=== PATIENT | female | born 1995 | race Caucasian/White ===

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

== ENCOUNTER → 2017-01-15 | Outpatient (CLI) | payer BC ==
[2017-01-20 00:40] LABS: CHLAMYDIA TRACH RNA*** NOT DETECTED (NOT DETECTED); GC (NEIS GONORRHOEAE)RNA** NOT DETECTED (NOT DETECTED); TRICHOMONAS VAGINALIS RNA** NOT DETECTED (NOT DETECTED)
== END | disposition home or self-care (01) ==
LOC: C.LABSPEC 17:25
PROVIDERS: ATTEND Obstetrics & Gynecology
DX: Z01.419 Encounter for gynecological examination (general) (routine) without abnormal findings (principal)

== ENCOUNTER → 2017-02-26 | Outpatient (CLI) | payer BC ==
--- NOTE | 2017-02-26 10:05 | DIAGNOSTIC IMAGING REPORT ---
LEFT SHOULDER MIN 2 VIEWS CLINICAL HISTORY: LEFT SHOULDER PAIN pain COMPARISON: None. DISCUSSION: The bones and joint spaces appear intact. There is no evidence of fracture, dislocation or bony disease. There is no evidence for soft tissue swelling. IMPRESSION: Negative study. The above report was generated using voice recognition software. It may contain grammatical, syntax or spelling errors. Electronically signed by: Salo Wilson M.D. 02/26/2017 10:04 AM Dictated Date/Time: 02/26/2017 10:03 AM
== END | disposition home or self-care (01) ==
LOC: C.RDSM 11:57
PROVIDERS: ATTEND Family Medicine
DX: M25.512 Pain in left shoulder (principal)

== ENCOUNTER → 2017-05-01 | Outpatient (CLI) | payer BC ==
--- NOTE | 2017-05-01 14:55 | MAMMOGRAPHY REPORT ---
ULTRASOUND OF BOTH BREASTS: 05/01/2017 CLINICAL HISTORY: The patient reports bilateral painful lumps for approximately 3 weeks. COMPARISON: Comparison is made to exam dated: 10/06/2013 ultrasound - [facility]. TECHNIQUE: Real-time targeted ultrasound of both breasts was performed. FINDINGS: Real-time, high resolution targeted ultrasound was performed of the areas of the painful p alpable lumps pointed out by the patient, in the left breast at 1:00 approximately 5-6 cm from the ni pple, as well as the right breast involving a large portion of the 5:30 to 6:00 breast. Sonographica lly normal dense fibroglandular tissue is seen in these regions, without evidence of a mass or other suspicious sonographic abnormality. IMPRESSION: ACR BI-RADS CATEGORY 2: BENIGN No suspicious sonographic abnormalities at the site of painful bilateral breast lumps. There is no s onographic evidence of malignancy. Recommend clinical follow-up. The patient was verbally notified of the results. Suha Garcia M.D. ah/:05/01/2017 11:55:33 Attending Technologist: Joelle Moffett RT(R)(M), [facility] Company Accountant: Suha Garcia MD, [facility] letter sent: Normal 1/2 BI-RADS Code: ACR BI-RADS Category 2: Benign
== END | disposition home or self-care (01) ==
LOC: C.MAMM 10:18
PROVIDERS: ATTEND Obstetrics & Gynecology
DX: N63 Unspecified lump in breast (principal)

== ENCOUNTER 2022-01-02 00:25 | Inpatient (IN) ==
[2022-01-02] MEDS ORDERED: PENICILLIN G POTASSIUM 6 MU in DEXTROSE 5% 250 ML IV STA (00:36)
[2022-01-02] MEDS ORDERED: LACTATED RINGER'S 1,000 ML IV PRN (00:36)
[2022-01-02] MEDS ORDERED: OXYTOCIN 30 UNITS/500 ML BAG IV PRN ×2 (00:36→07:34)
--- NOTE | 2022-01-02 00:42 | History & Physical Report ---
Date of Service January 02, 2022 Assessment & Plan (1) Supervision of normal first : Plan: 26yo at 38.1 weeks GA Presents with SROM and Labor. 1. Fetus: Cat 1 2. Labor: SROM with active labor 3. GBS positive - PCN 4. Vitals: WNL (2) SROM (spontaneous rupture of membranes): (3) Normal labor: (4) Group beta Strep positive: History of Present Illness Primary Care Provider: Le Cline MD 26yo at 38.1 weeks GA Presents with SROM and Labor. complicated by Chlamydia with FARIBA at 8 and 36 weeks and GBS positive. OB Labs: Blood Type A Positive 05/29/21 Antibody Screen NEGATIVE 05/29/21 Hemoglobin 11.2 g/dL (12.0-16.0) L 10/23/21 Hematocrit 33.3 % (37-47) L 10/23/21 Mean Corpuscular Volume 90.8 fL (80-100) 05/29/21 Platelet Count 357 K/uL (130-400) 05/29/21 Rubella IgG Antibody Immune (Immune) 05/29/21 Rapid Plasma Reagin Nonreactive (Nonreactive) 05/29/21 Hepatitis B Surface Antigen Neg (Neg) 05/29/21 HIV (1&2) Ab and P24 Ag, 4th Gener Neg (Neg) 05/29/21 Glucose 1 Hour 50 gm Load 95 mg/dl (70-130) 10/23/21 OB Optional Labs: Chlamydia trachomatis RNA NOT DETECTED (NOT DETECTED) 12/18/21 Neisseria gonorrhoeae RNA NOT DETECTED (NOT DETECTED) 12/18/21 Labs Reviewed: Normal cfDNA Negative SMA/CF GBS Positive--mln Allergies Allergy/AdvReac Type Severity Reaction Status Date / Time No Known Allergies Allergy Unknown Verified 12/25/21 15:35 Home Medications Medication Instructions Recorded Confirmed Type prenat.vits,gerda,szp-yluu-nfjfj 1 tab PO DAILY 05/22/21 01/02/22 History Patient History Medical History (Updated 01/02/22 @ 07:39 by Abe Mcdonald MD) History of chlamydia Vaginitis Varicella vaccination Surgical History S/P adenoidectomy Family History (Updated 05/22/21 @ 10:05 by Chantell Farrell) Grandmother (Maternal) Hypertension Breast cancer Grandfather (Paternal) Hypertension Father Dyslipidemia Uncle Myocardial infarction Denies family history of Ovarian cancer Colorectal cancer Social History (Updated 05/22/21 @ 10:05 by Chantell Farrell) Smoking Status: Former smoker Hx Alcohol Use: Yes Hx Substance Use: No Preferred Language: Slovenian [employer] School Required: No Beliefs That Will Affect Care: None marital status: Single marital status details: virgilio Armendariz (26) [phone] Current Living Situation: Significant Other Current Living Situation Comment: Cosme Armendariz current occupational status: student current occupation: student [employer] Other Information That Helps Us Care for You: No Feels Safe at Home: Yes Safety Concerns: Feels Safe At This Time Assistive Devices: Glasses Physical Exam Genitourinary: Manual OB Exam: + cervical dilation 5 cm, + cervical effacement and + amniotic fluid clear OB Exam Monitor Tracing: + external FHT monitor used, + external uterine monitor used, + category I and + normal FHT variability; no early decelerations present, no late decelerations present and no variable decelerations Exam per nurse Results & Data ([facility]) Vital Signs (Past 12 Hours) Vital Signs Pulse BP 01/02/22 00:37 72 153/78 H Coding Level of Care Code None Diagnoses Supervision of normal first Z34.00 SROM (spontaneous rupture of membranes) Normal labor O80; Z37.9 Group beta Strep positive B95.1
[2022-01-02] MEDS ORDERED: SODIUM CHLORIDE 0.9% INJ 10 ML VIAL ONE (00:55)
[2022-01-02] MEDS ORDERED: ePHEDrine sulfate 50 MG/ML AMP ONE (00:55)
[2022-01-02] MEDS ORDERED: fentaNYL citrate 100 MCG/2 ML VIAL ONE (00:55)
[2022-01-02] MEDS ORDERED: BUPIVACAINE 0.25% 30 ML VIAL ONE (00:56)
[2022-01-02] MEDS ORDERED: fentaNYL 2MCG/ML ROPIVACAINE 1.25MG/ML 100 ML BAG EPI ONE (00:56)
[2022-01-02 01:10] LABS: Hematocrit (blood only) 36.8 % (37-47); Hemoglobin 12.6 g/dL (12.0-16.0); Mean Corpuscular Hemoglobin 31.2 pg (25-34); Mean Corpuscular Hgb Conc 34.2 g/dL (32-36); Mean Corpuscular Volume 91.1 fL (80-100); Platelet Count 322 K/uL (130-400); RDW Coefficient of Variation 12.9 % (11.5-14.5); RDW Standard Deviation 42.9 fL (36.4-46.3); Red Blood Count 4.04 M/uL (4.2-5.4); White Blood Count 16.63 K/uL (4.8-10.8)
--- NOTE | 2022-01-02 01:41 | Anesthesiology Consultation ---
Date of Service January 02, 2022 Assessment & Plan Chart Review Chart Review: Acceptable Risk for Labor Epidural Consults Requested none ASA ASA2 Proposed Anesthesia Anesthesia Type: Labor Epidural Risk / Benefits Reviewed With: PT / POA / Parent / Guardian, Accepts Plan and Informed Consent Obtained History Height/Weight Height: 5 ft 4 in Weight: 82.554 kg Allergies Allergy/AdvReac Type Severity Reaction Status Date / Time No Known Allergies Allergy Unknown Verified 12/25/21 15:35 Medications Home Medications Medication Instructions Recorded Confirmed Last Taken prenat.vits,gerda,qlc-lbte-rznwb 1 tab PO DAILY 05/22/21 01/02/22 01/01/22 Active Medications Generic Name Dose Route Start Last Admin Trade Name Freq PRN Reason Stop Dose Admin Lactated Ringer's 1,000 mls @ 125 mls/hr 01/02/22 00:36 01/02/22 00:51 Lr IV 01/04/22 00:35 999 mls/hr .Q8H PRN Administration L&D Protocol Protocol NPO Date Last Intake of Fluids: 01/01/22 Time Last Intake of Fluids: 23:00 Date Last Intake of Solids: 01/01/22 Time Last Intake of Solids: 23:00 Past Medical History Medical History History of chlamydia Vaginitis Varicella vaccination Exercise / Class Metabolic Activity II 4-5 Yardwork/Stairs/Walk up hill Past Family History Family History (Updated 05/22/21 @ 10:05 by Chantell Farrell) Grandmother (Maternal) Hypertension Breast cancer Grandfather (Paternal) Hypertension Father Dyslipidemia Uncle Myocardial infarction Denies family history of Ovarian cancer Colorectal cancer Past Surgical History Surgical History S/P adenoidectomy Past Anesthesia History No Hx of Anesthesia Complications and No Family Hx of Anesthesia Complications History of PONV No Hx of PONV and No Hx of Motion Sickness Social History Smoking Status: Former smoker Hx Alcohol Use: Yes Hx Substance Use: No Physical Exam Vital Signs Last Vital Signs Temp 36.4 C L 01/02/22 00:37 Pulse 68 01/02/22 01:35 Resp 18 01/02/22 00:37 BP 153/78 H 01/02/22 00:37 Pulse Ox 100 01/02/22 01:35 ENMT Mouth: no TMJ abnormality Thyromental Distance: > or= 3.5 Finger Breadths Mallampati Class: II Neck normal visual inspection and trachea midline; neck extension not limited Respiratory normal respiratory effort Auscultation: lungs clear to auscultation bilaterally Cardiovascular Rate/Rhythm: regular rate and regular rhythm Heart Sounds: no murmur Musculoskeletal Spine: normal cervical ROM Extremities: full ROM of extremities Neurologic moves all extremities Psychiatric Orientation: alert and oriented x 3 Testing Laboratory Results 01/02/22 00:45
[2022-01-02] MEDS ORDERED: NALOXONE HCL 0.4 MG/1 ML VIAL/CARP IV PRN (01:58)
[2022-01-02] MEDS ORDERED: fentaNYL 2MCG/ML ROPIVACAINE 1.25MG/ML 100 ML BAG EPI PRN (01:58)
[2022-01-02] MEDS ORDERED: ePHEDrine sulfate 50 MG/ML AMP IV PRN (01:58)
[2022-01-02] MEDS ORDERED: diphenhydrAMINE 50 MG/ML VIAL IV PRN (01:58)
[2022-01-02] MEDS ORDERED: NALBUPHINE HCL INJ 10 MG/ML AMP IV PRN (01:58)
[2022-01-02] MEDS ORDERED: ONDANSETRON INJ 2 MG/ML 2 ML VIAL IV PRN (01:58)
[2022-01-02] MEDS ORDERED: NALOXONE HCL 1 MG in SODIUM CHLORIDE 0.9% 1000ML 1,000 ML IV PRN (01:58)
[2022-01-02] MEDS ORDERED: PENICILLIN G POTASSIUM 3 MU in DEXTROSE 5% 100 ML IV PRN (03:36)
[2022-01-02] MEDS ORDERED: DIPHTHERIA/TETANUS/PERTUSSIS 0.5 ML SYR/VIAL IM ONE (07:34)
[2022-01-02] MEDS ORDERED: bisacodyL 10 MG SUPP PR PRN (07:34)
[2022-01-02] MEDS ORDERED: IBUPROFEN 600 MG TAB PO PRN (07:34)
[2022-01-02] MEDS ORDERED: HYDROCORTISONE ACETATE 25 MG SUPP PR PRN (07:34)
[2022-01-02] MEDS ORDERED: ACETAMINOPHEN 325 MG TAB PO PRN (07:34)
[2022-01-02] MEDS ORDERED: BENZOCAINE 20% AER SPR 82.5 GM CAN EXT PRN (07:34)
--- NOTE | 2022-01-02 07:34 | Anesthesia Procedure Note ---
Date of Service January 02, 2022 Anesthesia Post Epidural Note Vital Signs Vital Signs: Temp Pulse Resp BP Pulse Ox 36.6 C 72 18 125/63 97 01/02/22 04:10 01/02/22 07:16 01/02/22 05:40 01/02/22 07:16 01/02/22 04:15 Notes Mental Status: alert / awake / arousable Nausea / Vomiting: adequately controlled Pain: adequately controlled Airway Patency, RR, SpO2: stable & adequate BP & HR: stable & adequate Hydration State: stable & adequate Neuraxial Anesthesia: was administered and sensory block is resolving Anesthetic Complications: no major complications apparent and Pt Satisfied with anesthetic care Epidural: Removed without complications and With tip intact
[2022-01-02] MEDS: FERROUS SULFATE 325 MG TAB PO SCH (08:23)
[2022-01-02] MEDS: DOCUSATE SODIUM 100 MG CAP PO SCH ×2 (08:23→20:37)
[2022-01-02] MEDS: PRENATAL VITAMIN 1 TAB PO SCH (08:23)
--- NOTE | 2022-01-02 09:50 | Delivery Summary ---
DATE OF SERVICE: 01/02/2022 PROCEDURE: Normal spontaneous vaginal delivery with bilateral labial laceration repair. SURGEON: Abe Mcdonald MD. PREOPERATIVE DIAGNOSES: 1. Single intrauterine at 38 weeks 1 day gestational age. 2. Spontaneous rupture of membranes with active labor. 3. Group B streptococcus positive. 4. complicated by chlamydia infection with test of cure. POSTOPERATIVE DIAGNOSES: 1. Single intrauterine at 38 weeks 1 day gestational age. 2. Spontaneous rupture of membranes with active labor. 3. Group B streptococcus positive. 4. complicated by chlamydia infection with test of cure. 5. Status post delivery. ESTIMATED BLOOD LOSS: 300 mL. DRAINS: Straight cath at the completion of the case. URINE OUTPUT: Approximately 400 mL via straight cath. COMPLICATIONS: None. FINDINGS: Viable female with weight and Apgars pending. INDICATIONS: Diann is a 26-year-old , admitted at 38 weeks 1 day gestational age with spontan eous rupture of membranes in active labor. The patient progressed spontaneously without augmentation , received an epidural for anesthesia and progressed to complete-complete, +2 station, at which time she pushed for 10 minutes to achieve delivery. DESCRIPTION OF PROCEDURE: The patient progressed to 10 cm dilated, 100% effaced, positive 2 station, pushed over intact perineum with epidural anesthesia, delivered a viable female with weight a nd Apgars as noted above. Head of the delivered in AYALA position, restituted to right transve rse. No nuchal cord was noted. Body and shoulders quickly followed. was noted to be vigoro us soon after delivery and a 1 minute delayed cord clamping was initiated. Cord was then double clam ped and cut. remained on maternal abdomen. Cord blood was obtained. Attention was then tur jesús to delivery of the placenta, which was delivered intact, 3-vessel cord, gentle cord traction. On inspection of the perineum, vagina, cervix, there was noted to be some bilateral labial lacerations, which were repaired with 3-0 Vicryl in interrupted stitch. Needle, sponge, and instrument counts we re correct at the completion of the case. Both mother and were stable in the immediate post- delivery period. Job ID: [id number]
--- NOTE | 2022-01-03 06:09 | Obstetrical Progress Note ---
Date of Service <Francis Anderson MD - Last Filed: 01/03/22 07:06> January 03, 2022 Assessment & Plan <Francis Anderson MD - Last Filed: 01/03/22 07:06> (1) Vaginal delivery: 26 yo now PPD1 from at 38wk1d -Discharge home today, instructions reviewed with patient -Vitals reviewed- HDS, afebrile -GBS+, PCN given intrapartum -Hgb 11.5, asymptomatic <Farheen Barahona MD, FACOG - Last Filed: 01/03/22 07:08> (1) Vaginal delivery: Subjective <Francis Anderson MD - Last Filed: 01/03/22 07:06> Ambulation: ambulating normally Voiding: no voiding problems Passing Gas:: No (has had BM) Diet Tolerance:: regular diet Lochia:: Small Feeding Type:: breast feeding Current Pain Level(1-10): 0 Pt doing well overall, no acute complaints or distress. Pain well controlled with medication. Would like to go home this afternoon. Review of Systems Denies fever/chills. Denies dyspnea, cough. Denies chest pain. Denies breast pain or discharge. Denies dysuria. Denies headache. Denies back pain. Physical Exam <Francis Anderson MD - Last Filed: 01/03/22 07:06> General: Alert, oriented, no acute distress Cardiac: Regular rate and rhythm, normal S1, S2. No murmurs appreciated. Respiratory: Clear to auscultation b/l with good air flow entry, symmetric chest rise and fall. No wheezes or crackles. No increased work of breathing or accessory muscle use Abdomen: Soft, nontender, nondistended. Fundus firm and palpable at 2 cm below umbilicus. No guarding or rebound. Skin: No rashes or lesions Extremities: Warm, dry, well-perfused with capillary refill <2s b/l. No lower extremity edema, erythema, swelling or calf tenderness b/l. Results & Data ([facility]) <Francis Anderson MD - Last Filed: 01/03/22 07:06> Vital Signs (Past 12 Hours) Vital Signs Temp Pulse Resp BP Pulse Ox 01/03/22 03:30 36.6 C 64 18 113/76 99 01/02/22 23:30 36.6 C 64 18 98/60 L 99 01/02/22 20:30 36.5 C 84 18 114/73 97 <Farheen Barahona MD, FACOG - Last Filed: 01/03/22 07:08> Co-Signing Physician Notes Resident Physician Supervision Note: I interviewed and examined the patient. Discussed with Dr. Anderson and agree with findings and plan as documented in the note. Any exceptions or clarifications are listed here: Doing well. Would like d/c today. Instructions given. Documented By: Farheen Barahona MD, FACOG Resident Activity Tracking <Francis Anderson MD - Last Filed: 01/03/22 07:06> Resident Involvement: Resident Care Provided Care Provided: OB Delivery
[2022-01-03 06:23] LABS: Hematocrit (blood only) 35.4 % (37-47); Hemoglobin 11.5 g/dL (12.0-16.0)
[2022-01-03] MEDS: PRENATAL VITAMIN 1 TAB PO SCH (08:41)
[2022-01-03] MEDS: FERROUS SULFATE 325 MG TAB PO SCH (08:41)
[2022-01-03] MEDS: DOCUSATE SODIUM 100 MG CAP PO SCH ×2 (08:41→20:28)
[2022-01-03] MEDS ORDERED: bisacodyL 5 MG TABEC PO SCH (20:00)
--- NOTE | 2022-01-04 06:55 | Obstetrical Progress Note ---
Date of Service January 04, 2022 Assessment & Plan (1) Encounter for care and examination after delivery: satisfactory exam continue current care plan discharge to home today Subjective Ambulation: ambulating normally Voiding: no voiding problems Passing Gas:: Yes Diet Tolerance:: regular diet Lochia:: Small Feeding Type:: breast feeding Review of Systems All systems reviewed & are unremarkable except as noted in HPI & below Physical Exam Constitutional WD/WN, vitals as above Psychiatric A+Ox3, euthymic affect Genitourinary OB Exam Abdomen: + fundal height Fundus: + firm and + relation to umbilicus (2 below) Results & Data ([facility]) Vital Signs (Past 12 Hours) Vital Signs Temp Pulse Resp BP Pulse Ox 01/03/22 23:03 98.4 F 65 16 109/72 99 01/03/22 20:30 98.8 F 83 18 132/80
[2022-01-04] MEDS: PRENATAL VITAMIN 1 TAB PO SCH (08:06)
[2022-01-04] MEDS: FERROUS SULFATE 325 MG TAB PO SCH (08:06)
[2022-01-04] MEDS: DOCUSATE SODIUM 100 MG CAP PO SCH (08:06)
== END 2022-01-04 11:36 | disposition home or self-care (01) | DRG 807 ==
LOC: OPB 00:25 → 4S1 00:27 → 4E2 13:40

== ENCOUNTER 2024-03-21 16:35 | Inpatient (IN) ==
[2024-03-21] MEDS ORDERED: OXYTOCIN 30 UNITS/NSS 30 UNITS/500 ML BAG IV PRN (19:29)
[2024-03-21] MEDS ORDERED: LIDOCAINE 1% LOCAL 20 ML VIAL INFIL PRN (19:29)
--- NOTE | 2024-03-21 19:32 | History & Physical Report ---
Date of Service March 21, 2024 Assessment & Plan (1) Encounter for supervision of normal in multigravida: Plan: 28 yo at 40 wga presented for prolonged monitoring, now rec for IOL VSS Fetus currently cat 1 Labor - discussed cytotec vs dang/pit, rec dang as cannot turn off the cytotec if nrfht develops. 35c dang placed, pt tolerated well. Will start pit GBS neg epidural prn History of Present Illness Chief Complaint: IOL Primary Care Provider: Le Cline MD 28 yo at 40 wga presented for prolonged monitoring after decel in office. Planned for iol tomorrow and was on nst where 2 decels were noted. On L&D, she had primarily cat 1 tracing however had 2 prolonged decels and so was recommended for iol to begin tonight PNI: None Past obgyn hx G1 2021 G2 current regular cycles Hx CT 3 yrs ago Allergies Allergy/AdvReac Type Severity Reaction Status Date / Time No Known Allergies Allergy Unknown Verified 03/21/24 15:35 Home Medications Medication Instructions Recorded Confirmed Type dtsbhaoy-vcq-Cy-FA PO 1XD 08/07/23 03/21/24 History [] Patient History Medical History Chlamydia Normal labor SROM (spontaneous rupture of membranes) Group beta Strep positive Varicella vaccination History of chlamydia Vaginitis Surgical History S/P wisdom tooth extraction S/P adenoidectomy Family History Grandmother (Maternal) Hypertension Breast cancer Grandfather (Paternal) Hypertension Father Dyslipidemia Uncle Myocardial infarction Denies family history of Ovarian cancer Colorectal cancer Social History (Updated 03/21/24 @ 16:51 by Gifty Pérez RN) Smoking Status: Former smoker Hx Alcohol Use: Yes Hx Substance Use: No 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 Other Information That Helps Us Care for You: No Feels Safe at Home: Yes Safety Concerns: Feels Safe At This Time Assistive Devices: Contacts and Glasses Physical Exam Genitourinary: OB Exam Abdomen: + vertex (confirmed by us) and + estimated weight (7-8) Manual OB Exam: + cervical dilation 1 cm, + cervical effacement 50% and + station high OB Exam Monitor Tracing: + external FHT monitor used, + external uterine monitor used (irreg) and + category II (115/mod/+accel/2 decels as noted) Results & Data Vital Signs (Past 12 Hours) Vital Signs Temp Pulse Resp BP 03/21/24 18:55 66 03/21/24 18:55 131/85 03/21/24 16:55 71 115/74 03/21/24 16:46 71 03/21/24 16:46 115/74 03/21/24 16:42 18 03/21/24 16:42 97.9 F 18 03/21/24 16:42 18 03/21/24 16:42 97.9 F 18 Laboratory Results OB Labs: Blood Type A Positive 08/14/23 Antibody Screen NEGATIVE 08/14/23 Hemoglobin 11.3 g/dl (12.0-16.0) L 01/04/24 Hematocrit 34.6 % (37.0-47.0) L 01/04/24 Mean Corpuscular Volume 92.1 fL (80.0-100.0) 08/14/23 Platelet Count 310 K/uL (130-400) 08/14/23 Rubella IgG Antibody Immune (Immune) 08/14/23 Rapid Plasma Reagin Nonreactive (Nonreactive) 08/14/23 Hepatitis B Surface Antigen Neg (Neg) 05/29/21 Hepatitis B Surface Antigen. NON-REACTIVE (NON-REACTIVE) 08/14/23 Hepatitis C Antibody Neg (Neg) 05/29/21 Hepatitis C Antibody (EIA) NON-REACTIVE (NON-REACTIVE) 08/14/23 HIV (1&2) Ab and P24 Ag, 4th Gener Neg (Neg) 05/29/21 HIV (1&2) Ag and Ab Confirmation NON-REACTIVE (NON-REACTIVE) 08/14/23 Glucose 1 Hour 50 gm Load 97 mg/dl (70-130) 01/04/24 OB Optional Labs: Chlamydia trachomatis RNA Not Detected (NotDetected) 08/14/23 Neisseria gonorrhoeae RNA Not Detected (NotDetected) 08/14/23 Labs Reviewed: negative cf/sma prior --mln cfdna-low risk--mln GBS neg Coding Level of Care Code None Diagnoses Encounter for supervision of normal in multigravida Z34.80
[2024-03-21 20:00] LABS: Hematocrit (blood only) 36.7 % (37.0-47.0); Hemoglobin 11.8 g/dl (12.0-16.0); Mean Corpuscular Hgb Conc 32.2 g/dL (32.0-36.0); Mean Corpuscular Volume 87.2 fL (80.0-100.0); Mean Platelet Volume 10.1 fL (9.4-12.4); Platelet Count 339 K/uL (130-400); RDW Coefficient of Variation 13.1 % (11.5-14.5); RDW Standard Deviation 40.8 fL (36.4-46.3); Red Blood Count 4.21 M/uL (4.20-5.40); White Blood Count 9.57 K/ul (4.8-10.8)
[2024-03-21] MEDS: LACTATED RINGER'S 1,000 ML IV PRN (20:05)
[2024-03-21] MEDS: OXYTOCIN 30 UNITS/NSS 30 UNITS/500 ML BAG IV PRN (21:39)
--- NOTE | 2024-03-21 22:53 | Labor Progress Brief Note ---
Date of Service March 21, 2024 Subjective presented to room due to decel, pit turned off by nursing, repositioning performed and baseline returned Assessment & Plan (1) Encounter for supervision of normal in multigravida: Plan: 28 yo at 40 wga presented for prolonged monitoring, now rec for IOL VSS Fetus currently cat 1 Labor - pit was at 4 before d/c'd. Returning to baseline of 110-115 and accel noted. Discussed w/ pt and fob concern about tolerance of induction given why she was recommended for monitoring and now this decel. Seemed like baby got very active after dang was placed, then became harder to trace and decel noted. Will give time for recovery, then try pit again increasing slower. GBS neg epidural prn Admission and Anticipated Discharge Date Admission Date: March 21, 2024 Physical Exam Genitourinary: OB Exam Monitor Tracing: + external FHT monitor used, + external uterine monitor used (q3-4) and + category II (115/mod/+accel/decel noted) Results & Data Vital Signs (Past 12 Hours) Vital Signs Temp Pulse Resp BP Pulse Ox 03/21/24 22:45 100 03/21/24 22:45 67 03/21/24 22:40 100 03/21/24 22:40 77 03/21/24 22:35 100 03/21/24 22:35 77 03/21/24 22:30 100 03/21/24 22:30 62 03/21/24 22:25 100 03/21/24 22:25 74 03/21/24 22:20 100 03/21/24 22:20 65 03/21/24 22:15 100 03/21/24 22:15 67 03/21/24 22:10 100 03/21/24 22:10 77 03/21/24 22:10 112/69 03/21/24 22:05 100 03/21/24 22:05 64 03/21/24 22:00 100 03/21/24 22:00 67 03/21/24 21:55 100 03/21/24 21:55 70 03/21/24 21:50 100 03/21/24 21:50 70 03/21/24 21:45 100 03/21/24 21:45 73 03/21/24 21:40 100 03/21/24 21:40 69 03/21/24 21:35 100 03/21/24 21:35 71 03/21/24 21:30 100 03/21/24 21:30 70 03/21/24 21:25 100 03/21/24 21:25 66 03/21/24 21:20 100 03/21/24 21:20 68 03/21/24 21:10 100 03/21/24 21:10 68 03/21/24 21:07 65 03/21/24 21:07 110/61 03/21/24 21:05 100 03/21/24 21:05 67 03/21/24 21:00 100 03/21/24 21:00 65 03/21/24 20:55 100 03/21/24 20:55 68 03/21/24 20:50 100 03/21/24 20:50 58 L 03/21/24 20:45 100 03/21/24 20:45 58 L 03/21/24 20:40 100 03/21/24 20:40 63 03/21/24 20:35 100 03/21/24 20:35 60 03/21/24 20:30 100 03/21/24 20:30 62 03/21/24 20:25 100 03/21/24 20:25 67 03/21/24 20:20 100 03/21/24 20:20 67 03/21/24 20:15 100 03/21/24 20:15 65 03/21/24 20:10 100 03/21/24 20:10 66 03/21/24 20:06 70 03/21/24 20:06 116/68 03/21/24 20:05 100 03/21/24 20:05 66 03/21/24 20:00 100 03/21/24 20:00 68 03/21/24 19:55 100 03/21/24 19:55 64 03/21/24 19:30 97.7 F 03/21/24 18:55 66 03/21/24 18:55 131/85 03/21/24 16:55 71 115/74 03/21/24 16:46 71 03/21/24 16:46 115/74 03/21/24 16:42 18 03/21/24 16:42 97.9 F 18 03/21/24 16:42 18 03/21/24 16:42 97.9 F 18 Coding Level of Care Code None Diagnoses Encounter for supervision of normal in multigravida Z34.80
[2024-03-22] MEDS ORDERED: diphenhydrAMINE 50 MG/ML VIAL IV PRN ×2 (04:16→09:33)
[2024-03-22] MEDS ORDERED: ROPIVACAINE 0.5% PF 5 MG/ML 20 ML VIAL EPI PRN (04:16)
[2024-03-22] MEDS ORDERED: NALOXONE HCL 0.4 MG/1 ML VIAL/CARP IV PRN ×2 (04:16→09:33)
[2024-03-22] MEDS ORDERED: fentaNYL citrate PF 100 MCG/2 ML VIAL EPI PRN (04:16)
[2024-03-22] MEDS ORDERED: ePHEDrine sulfate 50 MG/ML AMP IV PRN ×2 (04:16→09:33)
[2024-03-22] MEDS ORDERED: BUPIVACAINE 0.25% PF 30 ML VIAL EPI PRN (04:16)
[2024-03-22] MEDS ORDERED: LIDOCAINE 2% MPF LOCAL 5 ML VIAL EPI PRN (04:16)
[2024-03-22] MEDS ORDERED: NALBUPHINE HCL 5 MG in SYRINGE 0 ML IV PRN ×2 (04:16→09:33)
[2024-03-22] MEDS ORDERED: SODIUM CHLORIDE 0.9% PF INJ 10 ML VIAL EPI PRN (04:16)
[2024-03-22] MEDS ORDERED: NALOXONE HCL 1 MG in SODIUM CHLORIDE 0.9% 1,000 ML IV PRN ×2 (04:16→09:33)
--- NOTE | 2024-03-22 04:18 | Anesthesiology Consultation ---
Date of Service March 22, 2024 Assessment & Plan Chart Review Chart Review: Patient NOT seen in Pre Admission Testing and Acceptable Risk for Labor Epidural Consults Requested none ASA ASA2 Proposed Anesthesia Anesthesia Type: Labor Epidural Risk / Benefits Reviewed With: PT / POA / Parent / Guardian, Accepts Plan and Informed Consent Obtained History Height/Weight Height: 5 ft 4 in Weight: 88.541 kg Allergies Allergy/AdvReac Type Severity Reaction Status Date / Time No Known Allergies Allergy Unknown Verified 03/21/24 15:35 Medications Home Medications Medication Instructions Recorded Confirmed Last Taken dfpfjllu-cvi-Wu-FA PO 1XD 08/07/23 03/21/24 03/19/24 [] Active Medications Generic Name Dose Route Start Last Admin Trade Name Freq PRN Reason Stop Dose Admin Oxytocin 30 units in 500 mls @ 4 mls/hr 03/21/24 19:29 03/22/24 02:30 Pitocin 30 Units/Nss IV 03/23/24 19:28 0.24 units/hr .Q24H PRN 4 mls/hr Labor Induction/Augmentation Titration Protocol 0.24 UNITS/HR Lactated Ringer's 1,000 mls @ 125 mls/hr 03/21/24 19:29 03/21/24 23:21 Lr IV 03/23/24 19:28 125 mls/hr .Q8H PRN Infusion L&D Protocol Protocol NPO Date Last Intake of Fluids: 03/22/24 Time Last Intake of Fluids: 04:00 Date Last Intake of Solids: 03/21/24 Time Last Intake of Solids: 12:00 Past Medical History Medical History Chlamydia Normal labor SROM (spontaneous rupture of membranes) Group beta Strep positive Varicella vaccination History of chlamydia Vaginitis Exercise / Class Metabolic Activity 1 > 8 Run/Swim/Ski/Tennis Past Family History Family History Grandmother (Maternal) Hypertension Breast cancer Grandfather (Paternal) Hypertension Father Dyslipidemia Uncle Myocardial infarction Denies family history of Ovarian cancer Colorectal cancer Past Surgical History Surgical History S/P wisdom tooth extraction S/P adenoidectomy Past Anesthesia History No Hx of Anesthesia Complications and No Family Hx of Anesthesia Complications History of PONV No Hx of PONV and No Hx of Motion Sickness Social History Hx Alcohol Use: Yes Hx Substance Use: No Review of Systems ROS Unobtainable: All systems reviewed & are unremarkable except as noted in HPI & below Physical Exam Vital Signs Last Vital Signs Temp 36.7 C 03/22/24 03:00 Pulse 67 03/22/24 04:08 Resp 18 03/21/24 16:42 BP 118/66 03/22/24 04:08 Pulse Ox 100 03/22/24 04:08 ENMT Mouth: no TMJ abnormality Thyromental Distance: > or= 3.5 Finger Breadths Mallampati Class: II Neck normal visual inspection and trachea midline; neck extension not limited Respiratory normal respiratory effort Auscultation: lungs clear to auscultation bilaterally Cardiovascular Rate/Rhythm: regular rate and regular rhythm Heart Sounds: no murmur Musculoskeletal Spine: normal cervical ROM Extremities: full ROM of extremities Neurologic moves all extremities Psychiatric Orientation: alert and oriented x 3 Testing Laboratory Results 03/21/24 19:36
[2024-03-22] MEDS: fentANYL 2 MCG/ML BUPIVacaine 0.125%-NSS 100ML BAG EPI PRN (04:39)
[2024-03-22] MEDS: LIDOCAINE 2%/EPINEPHRINE 1:200,000 20 ML PF EPI STA (04:40)
[2024-03-22] MEDS: SODIUM CHLORIDE 0.9% PF INJ 10 ML VIAL EPI STA (04:40)
[2024-03-22] MEDS: BUPIVACAINE 0.25% PF 30 ML VIAL EPI STA (04:40)
--- NOTE | 2024-03-22 05:46 | Labor Progress Brief Note ---
Date of Service March 22, 2024 Subjective Called to eval due to lates Assessment & Plan (1) Encounter for supervision of normal in multigravida: Plan: 28 yo at 42 wga presented for prolonged monitoring, now rec for IOL VSS Fetus currently cat 1 Labor - pit was again d/c'd at 4 after epidural. Earlier had intermittent variable and late but with good variability and accels that appears to recover w ith repositioning. Just prior to epidural and upon putting monitors back, appears to start having recurrent lates that did resolve w/ pit dc and is now back to cat 1 strip. Had good progress with dang bulb falling out, now 4cm. Will allow time for recovery. First labor she was latosha, had srom at 5cm and quickly progressed to complete and did not push long. Discussed could try that instead of pitocin after allowing time for recovery with understanding that baby may not tolerate but will have to see GBS neg epidural in place Admission and Anticipated Discharge Date Admission Date: March 21, 2024 Physical Exam Genitourinary: Manual OB Exam: + cervical dilation 4 cm, + cervical effacement 50% and + station -2 OB Exam Monitor Tracing: + external FHT monitor used, + external uterine monitor used (q3-5) and + category II EFM 115-120/mod/+accel/intermit variable and late previously, recurrent lates after epidural that recovered with pit dc, good scalp stim Results & Data Vital Signs (Past 12 Hours) Vital Signs Temp Pulse BP Pulse Ox 03/22/24 05:38 70 100 03/22/24 05:34 72 98/47 L 03/22/24 05:33 71 100 03/22/24 05:28 84 100 03/22/24 05:23 82 100 03/22/24 05:18 68 100 03/22/24 05:13 71 100 03/22/24 05:08 80 100 03/22/24 05:05 71 121/75 03/22/24 05:03 73 98 03/22/24 04:58 90 98 03/22/24 04:53 77 99 03/22/24 04:50 77 116/64 03/22/24 04:48 89 99 03/22/24 04:43 77 121/68 99 03/22/24 04:41 69 113/57 L 03/22/24 04:39 74 127/58 L 03/22/24 04:38 71 99 03/22/24 04:37 72 119/61 03/22/24 04:36 72 117/62 03/22/24 04:33 74 99 03/22/24 04:28 75 100 03/22/24 04:23 84 99 03/22/24 04:18 76 99 03/22/24 04:08 67 118/66 100 03/22/24 04:03 67 99 03/22/24 03:58 72 98 03/22/24 03:53 61 98 03/22/24 03:48 68 99 03/22/24 03:43 69 99 03/22/24 03:38 67 99 03/22/24 03:33 79 99 03/22/24 03:28 84 99 03/22/24 03:23 83 99 03/22/24 03:18 76 99 03/22/24 03:13 70 99 03/22/24 03:08 66 117/61 99 03/22/24 03:03 70 99 03/22/24 03:00 98.1 F 03/22/24 02:58 76 99 03/22/24 02:53 73 100 03/22/24 02:48 79 100 03/22/24 02:43 91 H 99 03/22/24 02:38 63 100 03/22/24 02:33 61 99 03/22/24 02:28 73 99 03/22/24 02:23 69 99 03/22/24 02:18 63 99 03/22/24 02:13 68 99 03/22/24 02:08 76 99 03/22/24 02:07 75 113/65 03/22/24 02:03 65 100 03/22/24 01:58 62 98 03/22/24 01:53 59 L 98 03/22/24 01:48 63 98 03/22/24 01:43 68 98 03/22/24 01:38 64 98 03/22/24 01:33 68 100 03/22/24 01:28 71 100 03/22/24 01:23 67 99 03/22/24 01:18 73 99 03/22/24 01:13 77 99 03/22/24 01:08 67 03/22/24 01:08 66 102/61 99 03/22/24 01:03 65 100 03/22/24 00:58 74 99 03/22/24 00:53 72 99 03/22/24 00:48 72 99 03/22/24 00:43 80 100 03/22/24 00:38 77 99 03/22/24 00:33 71 99 03/22/24 00:28 65 99 03/22/24 00:23 69 98 03/22/24 00:18 64 99 03/22/24 00:13 71 99 03/22/24 00:08 69 110/61 99 03/22/24 00:03 68 99 03/21/24 23:58 99 03/21/24 23:58 73 03/21/24 23:53 99 03/21/24 23:53 71 03/21/24 23:48 99 03/21/24 23:48 73 03/21/24 23:43 100 03/21/24 23:43 78 03/21/24 23:38 99 03/21/24 23:38 80 03/21/24 23:33 100 03/21/24 23:33 66 03/21/24 23:25 100 03/21/24 23:25 69 03/21/24 23:20 100 03/21/24 23:20 66 03/21/24 23:15 100 03/21/24 23:15 70 03/21/24 23:10 100 03/21/24 23:10 66 03/21/24 23:07 64 03/21/24 23:07 104/61 03/21/24 23:05 100 03/21/24 23:05 62 03/21/24 23:00 97.9 F 03/21/24 23:00 100 03/21/24 23:00 63 03/21/24 22:55 100 03/21/24 22:55 64 03/21/24 22:50 100 03/21/24 22:50 65 03/21/24 22:45 100 03/21/24 22:45 67 03/21/24 22:40 100 03/21/24 22:40 77 03/21/24 22:35 100 03/21/24 22:35 77 03/21/24 22:30 100 03/21/24 22:30 62 03/21/24 22:25 100 03/21/24 22:25 74 03/21/24 22:20 100 08/19/24 22:20 65 03/21/24 22:15 100 03/21/24 22:15 67 03/21/24 22:10 100 03/21/24 22:10 77 03/21/24 22:10 112/69 03/21/24 22:05 100 03/21/24 22:05 64 03/21/24 22:00 100 03/21/24 22:00 67 03/21/24 21:55 100 03/21/24 21:55 70 03/21/24 21:50 100 03/21/24 21:50 70 03/21/24 21:45 100 03/21/24 21:45 73 03/21/24 21:40 100 03/21/24 21:40 69 03/21/24 21:35 100 03/21/24 21:35 71 03/21/24 21:30 100 03/21/24 21:30 70 03/21/24 21:25 100 03/21/24 21:25 66 03/21/24 21:20 100 03/21/24 21:20 68 03/21/24 21:10 100 03/21/24 21:10 68 03/21/24 21:07 65 03/21/24 21:07 110/61 03/21/24 21:05 100 03/21/24 21:05 67 03/21/24 21:00 100 03/21/24 21:00 65 03/21/24 20:55 100 03/21/24 20:55 68 03/21/24 20:50 100 03/21/24 20:50 58 L 03/21/24 20:45 100 03/21/24 20:45 58 L 03/21/24 20:40 100 03/21/24 20:40 63 03/21/24 20:35 100 03/21/24 20:35 60 03/21/24 20:30 100 03/21/24 20:30 62 03/21/24 20:25 100 03/21/24 20:25 67 03/21/24 20:20 100 03/21/24 20:20 67 03/21/24 20:15 100 03/21/24 20:15 65 03/21/24 20:10 100 03/21/24 20:10 66 03/21/24 20:06 70 03/21/24 20:06 116/68 03/21/24 20:05 100 03/21/24 20:05 66 03/21/24 20:00 100 03/21/24 20:00 68 03/21/24 19:55 100 03/21/24 19:55 64 03/21/24 19:30 97.7 F 03/21/24 18:55 66 03/21/24 18:55 131/85 Coding Level of Care Code None Diagnoses Encounter for supervision of normal in multigravida Z34.80
[2024-03-22] MEDS: ePHEDrine sulfate 50 MG/ML AMP ONE ×2 (06:15)
[2024-03-22] MEDS: fentANYL 2 MCG/ML BUPIVacaine 0.125%-NSS 100ML BAG ONE (06:15)
[2024-03-22] MEDS: fentaNYL citrate PF 100 MCG/2 ML VIAL ONE (06:15)
[2024-03-22] MEDS: SODIUM CHLORIDE 0.9% PF INJ 10 ML VIAL ONE (06:15)
[2024-03-22] MEDS: LIDOCAINE 2%/EPINEPHRINE 1:200,000 20 ML PF ONE (06:15)
[2024-03-22] MEDS: BUPIVACAINE 0.25% PF 30 ML VIAL ONE (06:15)
[2024-03-22] MEDS: fentaNYL citrate PF 100 MCG/2 ML VIAL EPI STA (06:16)
--- NOTE | 2024-03-22 07:41 | Labor Progress Brief Note ---
Date of Service March 22, 2024 Subjective Resting comfortably Assessment & Plan (1) Encounter for supervision of normal in multigravida: Plan: 28 yo at 42 wga presented for prolonged monitoring, now rec for IOL VSS Fetus cat 2 but reassuring w/ mod variability and good accels Labor - discussed arom to try to augment since she had rapid progression with last delivery afterward rather than try pit, now 5cm, pt agreeable. GBS neg epidural in place Admission and Anticipated Discharge Date Admission Date: March 21, 2024 Physical Exam Genitourinary: Manual OB Exam: + cervical dilation 5 cm, + cervical effacement 50%, + station -2 and + amniotic fluid (arom clear) OB Exam Monitor Tracing: + external FHT monitor used, + external uterine monitor used (q3-5) and + category II (125/mod/+accel/intermit variables) Results & Data Vital Signs (Past 12 Hours) Vital Signs Temp Pulse BP Pulse Ox 03/22/24 07:33 68 100 03/22/24 07:28 73 100 03/22/24 07:26 73 120/65 03/22/24 07:23 74 99 03/22/24 07:18 77 100 03/22/24 07:13 82 100 03/22/24 07:08 87 99 03/22/24 07:03 90 98 03/22/24 06:58 61 98 03/22/24 06:54 62 108/53 L 03/22/24 06:53 57 L 98 03/22/24 06:48 59 L 98 03/22/24 06:43 63 98 03/22/24 06:38 61 98 03/22/24 06:33 64 99 03/22/24 06:28 68 98 03/22/24 06:24 81 118/65 03/22/24 06:23 70 98 03/22/24 06:18 64 100 03/22/24 06:13 69 100 03/22/24 06:08 71 100 03/22/24 06:03 64 100 03/22/24 05:58 65 100 03/22/24 05:54 77 115/64 03/22/24 05:53 71 100 03/22/24 05:49 63 114/56 L 03/22/24 05:48 86 100 03/22/24 05:43 69 98 03/22/24 05:38 70 100 08/20/24 05:34 72 98/47 L 03/22/24 05:33 71 100 03/22/24 05:28 84 100 03/22/24 05:23 82 100 03/22/24 05:18 68 100 03/22/24 05:13 71 100 03/22/24 05:08 80 100 03/22/24 05:05 71 121/75 03/22/24 05:03 73 98 03/22/24 04:58 90 98 03/22/24 04:53 77 99 03/22/24 04:50 77 116/64 03/22/24 04:48 89 99 03/22/24 04:43 77 121/68 99 03/22/24 04:41 69 113/57 L 03/22/24 04:39 74 127/58 L 03/22/24 04:38 71 99 03/22/24 04:37 72 119/61 03/22/24 04:36 72 117/62 03/22/24 04:33 74 99 03/22/24 04:28 75 100 03/22/24 04:23 84 99 03/22/24 04:18 76 99 03/22/24 04:08 67 118/66 100 03/22/24 04:03 67 99 03/22/24 03:58 72 98 03/22/24 03:53 61 98 03/22/24 03:48 68 99 03/22/24 03:43 69 99 03/22/24 03:38 67 99 03/22/24 03:33 79 99 03/22/24 03:28 84 99 03/22/24 03:23 83 99 03/22/24 03:18 76 99 03/22/24 03:13 70 99 03/22/24 03:08 66 117/61 99 03/22/24 03:03 70 99 03/22/24 03:00 98.1 F 03/22/24 02:58 76 99 03/22/24 02:53 73 100 03/22/24 02:48 79 100 03/22/24 02:43 91 H 99 03/22/24 02:38 63 100 03/22/24 02:33 61 99 03/22/24 02:28 73 99 03/22/24 02:23 69 99 03/22/24 02:18 63 99 08/20/24 02:13 68 99 03/22/24 02:08 76 99 03/22/24 02:07 75 113/65 03/22/24 02:03 65 100 03/22/24 01:58 62 98 03/22/24 01:53 59 L 98 03/22/24 01:48 63 98 03/22/24 01:43 68 98 03/22/24 01:38 64 98 03/22/24 01:33 68 100 03/22/24 01:28 71 100 03/22/24 01:23 67 99 03/22/24 01:18 73 99 03/22/24 01:13 77 99 03/22/24 01:08 67 03/22/24 01:08 66 102/61 99 03/22/24 01:03 65 100 03/22/24 00:58 74 99 03/22/24 00:53 72 99 03/22/24 00:48 72 99 03/22/24 00:43 80 100 03/22/24 00:38 77 99 03/22/24 00:33 71 99 03/22/24 00:28 65 99 03/22/24 00:23 69 98 03/22/24 00:18 64 99 03/22/24 00:13 71 99 03/22/24 00:08 69 110/61 99 03/22/24 00:03 68 99 03/21/24 23:58 99 03/21/24 23:58 73 03/21/24 23:53 99 03/21/24 23:53 71 03/21/24 23:48 99 03/21/24 23:48 73 03/21/24 23:43 100 03/21/24 23:43 78 03/21/24 23:38 99 03/21/24 23:38 80 03/21/24 23:33 100 03/21/24 23:33 66 03/21/24 23:25 100 03/21/24 23:25 69 03/21/24 23:20 100 03/21/24 23:20 66 03/21/24 23:15 100 03/21/24 23:15 70 03/21/24 23:10 100 03/21/24 23:10 66 03/21/24 23:07 64 03/21/24 23:07 104/61 0824 23:05 100 03/21/24 23:05 62 03/21/24 23:00 97.9 F 03/21/24 23:00 100 03/21/24 23:00 63 03/21/24 22:55 100 03/21/24 22:55 64 03/21/24 22:50 100 03/21/24 22:50 65 03/21/24 22:45 100 03/21/24 22:45 67 03/21/24 22:40 100 03/21/24 22:40 77 03/21/24 22:35 100 03/21/24 22:35 77 03/21/24 22:30 100 03/21/24 22:30 62 03/21/24 22:25 100 03/21/24 22:25 74 03/21/24 22:20 100 03/21/24 22:20 65 03/21/24 22:15 100 03/21/24 22:15 67 03/21/24 22:10 100 03/21/24 22:10 77 03/21/24 22:10 112/69 03/21/24 22:05 100 03/21/24 22:05 64 03/21/24 22:00 100 03/21/24 22:00 67 03/21/24 21:55 100 03/21/24 21:55 70 03/21/24 21:50 100 03/21/24 21:50 70 03/21/24 21:45 100 03/21/24 21:45 73 03/21/24 21:40 100 03/21/24 21:40 69 03/21/24 21:35 100 03/21/24 21:35 71 03/21/24 21:30 100 03/21/24 21:30 70 03/21/24 21:25 100 03/21/24 21:25 66 03/21/24 21:20 100 03/21/24 21:20 68 03/21/24 21:10 100 03/21/24 21:10 68 03/21/24 21:07 65 03/21/24 21:07 110/61 03/21/24 21:05 100 03/21/24 21:05 67 03/21/24 21:00 100 03/21/24 21:00 65 03/21/24 20:55 100 03/21/24 20:55 68 03/21/24 20:50 100 03/21/24 20:50 58 L 03/21/24 20:45 100 03/21/24 20:45 58 L 03/21/24 20:40 100 03/21/24 20:40 63 03/21/24 20:35 100 03/21/24 20:35 60 03/21/24 20:30 100 03/21/24 20:30 62 03/21/24 20:25 100 03/21/24 20:25 67 03/21/24 20:20 100 03/21/24 20:20 67 03/21/24 20:15 100 03/21/24 20:15 65 03/21/24 20:10 100 03/21/24 20:10 66 03/21/24 20:06 70 03/21/24 20:06 116/68 03/21/24 20:05 100 03/21/24 20:05 66 03/21/24 20:00 100 03/21/24 20:00 68 03/21/24 19:55 100 03/21/24 19:55 64 Coding Level of Care Code None Diagnoses Encounter for supervision of normal in multigravida Z34.80
--- NOTE | 2024-03-22 09:08 | History & Physical Bridge Note ---
Date of Service March 22, 2024 History & Physical Bridge Note I have examined the patient, reviewed the History & Physical and in the interval since the performance of the History & Physical I have noted the following changes of clinical significance: Decelerations, recurrent. 5cm dilation. Recommended STAT section. Consent reviewed, patient agreeable.
[2024-03-22] MEDS ORDERED: ceFAZolin 2000MG 2,000 MG/15 ML SYR IV SCH (09:15)
[2024-03-22] MEDS ORDERED: OXYTOCIN 10 UNITS/ML VIAL ONE ×3 (09:22→09:24)
[2024-03-22] MEDS ORDERED: MoRPHine SULFATE PF 1 MG/ML 10 ML AMP/VIAL ONE (09:29)
[2024-03-22] MEDS ORDERED: NALOXONE HCL 0.08 MG in SYRINGE 1.8 ML IV PRN (09:33)
[2024-03-22] MEDS ORDERED: LACTATED RINGER'S 500 ML IV PRN (09:33)
[2024-03-22] MEDS ORDERED: SUCCINYLCHOLINE CHLORIDE 20 MG/ML 10 ML VIAL IV ONE (09:44)
[2024-03-22] MEDS ORDERED: ONDANSETRON INJ 2 MG/ML 2 ML VIAL ONE (09:44)
[2024-03-22] MEDS ORDERED: PROPOFOL IV EMULSION 10 MG/ML 20 ML VIAL IV ONE (09:44)
[2024-03-22] MEDS ORDERED: NO NARCOTICS OR SEDATIVES SCH (09:45)
[2024-03-22] MEDS ORDERED: DC INTRASPINAL MORPHINE SCH (09:45)
[2024-03-22] MEDS: KETOROLAC 30 MG/ML VIAL IV PRN (10:22)
--- NOTE | 2024-03-22 10:28 | Operative Report ---
Post Operative Report Pre & Post Diagnosis Operation Date: 03/22/24 09:15 Pre: Postdates induction of labor, bradycardia Post: same I identified the patient and participated in the time-out.: Yes Procedure Operation Date: 03/22/24 09:15 Primary Low Transverse section Surgeon Lizeth Platt, DO Slp Teacher Brenda Box MD Quantitative Blood Loss (QBL) 198 Findings Consistent with Post-Op Diagnosis Viable male , Apgars 8/8. Weight pending, please see nursery records. Uterus, ovaries, fallopian tubes all normal. Specimens placenta, cord blood, cord gas Drains dang clear yellow Anesthesia Type General Complications none Disposition Accompanied Patient To Recovery: No Disposition: L&D Indications 28yo @ 42 08/09, undergoing induction of labor. Had occasional decelerations overnight- but continued to see good recovery. Underwent dang bulb, pitocin, AROM. Then decelerations worsened and became Category 3 tracing, not responsive to resuscitative efforts. Patient agreed to STAT section for bradycardia and we proceeded to OR. Description of Procedure The patient was seen in her labor and delivery room, risks benefits and alternatives to surgery were reviewed. Informed consent obtained. She was taken to the operating room, general anesthesia was administered. She was prepared and draped in the supine position with a leftward tilt. Betadine splash. Timeout was confirmed. A Pfannenstiel skin incision was made with a scalpel, and carried through to the underlying layer of fascia. Fascia was nicked at midline, and this incision was extended bilaterally. The superior aspect of the fascial incision was grasped with Shannan clamps x2, elevated off the underlying rectus abdominis muscles, and dissected sharply and bluntly. In similar fashion, the inferior aspect of the fascial incision was dissected. The rectus abdominis muscles were , and the peritoneum was entered bluntly digitally. This was extended bilaterally. The bladder flap was taken down carefully using Metzenbaum scissors. Using a new scalpel, a low transverse uterine incision was created. Clear amniotic fluid noted. The was delivered from a cephalic presentation. The head delivered, followed by shoulders and body. Baby had tone on the field. The cord was doubly clamped and cut, and the was handed off to the waiting locate technician, and spontaneous cry was heard at the warmer. A segment was retained for cord gases. Cord blood was obtained. The placenta was delivered spontaneously intact. The uterus was exteriorized, and cleared of all clots and debris. The hysterotomy incision was reapproximated using 0 Vicryl in a running locked stitch. A second layer of the same suture was used to imbricate the incision. Posterior uterus was evaluated and normal. The uterus was returned to the abdomen, and gutters were cleared of clots and debris. Excellent hemostasis was observed. The fascial incision was reapproximated using 0 Vicryl in a running stitch. The subcutaneous tissue was irrigated, and reapproximated using 2-0 plain gut in a running stitch. The skin was reapproximated using 4-0 Vicryl in a running subcuticular stitch. Steri-Strips and a bandage were applied. The patient tolerated the procedure well, and will be taken to the recovery area in stable and good condition. I attest to the content of the Intraoperative Record and any orders documented therein. Any exceptions are noted below. OB Procedure Charges 56584
[2024-03-22] MEDS: HYDROmorphone INJ 0.5 MG/0.5 ML SYR IV PRN (10:44)
--- NOTE | 2024-03-22 11:00 | Anesthesiology Progress Note ---
Date of Service March 22, 2024 Anesthesia Post Procedure Vital Signs Vital Signs: Temp Pulse Resp BP Pulse Ox 03/22/24 10:56 73 120/74 03/22/24 10:55 76 98 03/22/24 10:50 69 99 03/22/24 10:46 68 120/66 03/22/24 10:45 66 99 03/22/24 10:40 20 03/22/24 10:40 67 99 03/22/24 10:36 68 131/78 03/22/24 10:35 66 100 03/22/24 10:30 66 100 03/22/24 10:26 71 121/79 03/22/24 10:25 73 100 03/22/24 10:20 36.6 C 20 03/22/24 10:20 71 100 03/22/24 10:16 85 119/76 03/22/24 10:15 86 100 03/22/24 09:08 80 100 03/22/24 09:03 71 99 03/22/24 08:58 73 99 03/22/24 08:54 69 20 115/64 03/22/24 08:53 74 99 03/22/24 08:48 78 99 03/22/24 08:43 68 99 03/22/24 08:38 64 100 03/22/24 08:35 20 03/22/24 08:35 37.5 C 20 03/22/24 08:33 61 100 03/22/24 08:28 60 100 03/22/24 08:24 57 L 97/50 L 03/22/24 08:23 65 100 03/22/24 08:18 65 100 03/22/24 08:13 69 100 03/22/24 08:08 72 100 03/22/24 08:03 66 100 03/22/24 07:58 65 100 03/22/24 07:55 67 101/56 L 03/22/24 07:53 64 20 100 03/22/24 07:48 63 100 03/22/24 07:43 66 100 03/22/24 07:38 66 100 03/22/24 07:33 68 100 03/22/24 07:28 73 100 03/22/24 07:26 73 120/65 03/22/24 07:23 74 99 03/22/24 07:18 77 100 03/22/24 07:13 82 100 03/22/24 07:08 87 99 03/22/24 07:03 90 98 03/22/24 07:02 20 03/22/24 07:02 36.8 C 20 03/22/24 06:58 61 98 03/22/24 06:54 62 108/53 L 03/22/24 06:53 57 L 98 03/22/24 06:48 59 L 98 03/22/24 06:43 63 98 03/22/24 06:38 61 98 03/22/24 06:33 64 99 03/22/24 06:28 68 98 03/22/24 06:24 81 118/65 03/22/24 06:23 70 98 03/22/24 06:18 64 100 03/22/24 06:13 69 100 03/22/24 06:08 71 100 03/22/24 06:03 64 100 03/22/24 05:58 65 100 03/22/24 05:54 77 115/64 03/22/24 05:53 71 100 03/22/24 05:49 63 114/56 L 03/22/24 05:48 86 100 03/22/24 05:43 69 98 03/22/24 05:38 70 100 03/22/24 05:34 72 98/47 L 03/22/24 05:33 71 100 03/22/24 05:28 84 100 03/22/24 05:23 82 100 03/22/24 05:18 68 100 03/22/24 05:13 71 100 03/22/24 05:08 80 100 03/22/24 05:05 71 121/75 03/22/24 05:03 73 98 03/22/24 04:58 90 98 03/22/24 04:53 77 99 03/22/24 04:50 77 116/64 03/22/24 04:48 89 99 03/22/24 04:43 77 121/68 99 03/22/24 04:41 69 113/57 L 03/22/24 04:39 74 127/58 L 03/22/24 04:38 71 99 03/22/24 04:37 72 119/61 03/22/24 04:36 72 117/62 03/22/24 04:33 74 99 03/22/24 04:28 75 100 08/20/24 04:23 84 99 03/22/24 04:18 76 99 03/22/24 04:08 67 118/66 100 03/22/24 04:03 67 99 03/22/24 03:58 72 98 03/22/24 03:53 61 98 03/22/24 03:48 68 99 03/22/24 03:43 69 99 03/22/24 03:38 67 99 03/22/24 03:33 79 99 03/22/24 03:28 84 99 03/22/24 03:23 83 99 03/22/24 03:18 76 99 03/22/24 03:13 70 99 03/22/24 03:08 66 117/61 99 03/22/24 03:03 70 99 03/22/24 03:00 36.7 C 03/22/24 02:58 76 99 03/22/24 02:53 73 100 03/22/24 02:48 79 100 03/22/24 02:43 91 H 99 03/22/24 02:38 63 100 03/22/24 02:33 61 99 03/22/24 02:28 73 99 03/22/24 02:23 69 99 03/22/24 02:18 63 99 03/22/24 02:13 68 99 03/22/24 02:08 76 99 03/22/24 02:07 75 113/65 03/22/24 02:03 65 100 03/22/24 01:58 62 98 03/22/24 01:53 59 L 98 03/22/24 01:48 63 98 03/22/24 01:43 68 98 03/22/24 01:38 64 98 03/22/24 01:33 68 100 03/22/24 01:28 71 100 03/22/24 01:23 67 99 03/22/24 01:18 73 99 03/22/24 01:13 77 99 03/22/24 01:08 67 03/22/24 01:08 66 102/61 99 03/22/24 01:03 65 100 03/22/24 00:58 74 99 20 00:53 72 99 03/22/24 00:48 72 99 03/22/24 00:43 80 100 03/22/24 00:38 77 99 03/22/24 00:33 71 99 08/20/24 00:28 65 99 03/22/24 00:23 69 98 03/22/24 00:18 64 99 03/22/24 00:13 71 99 03/22/24 00:08 69 110/61 99 03/22/24 00:03 68 99 03/21/24 23:58 99 03/21/24 23:58 73 03/21/24 23:53 99 03/21/24 23:53 71 03/21/24 23:48 99 03/21/24 23:48 73 03/21/24 23:43 100 03/21/24 23:43 78 03/21/24 23:38 99 03/21/24 23:38 80 03/21/24 23:33 100 03/21/24 23:33 66 03/21/24 23:25 100 03/21/24 23:25 69 03/21/24 23:20 100 03/21/24 23:20 66 03/21/24 23:15 100 03/21/24 23:15 70 03/21/24 23:10 100 03/21/24 23:10 66 03/21/24 23:07 64 03/21/24 23:07 104/61 03/21/24 23:05 100 03/21/24 23:05 62 03/21/24 23:00 36.6 C 03/21/24 23:00 100 03/21/24 23:00 63 03/21/24 22:55 100 03/21/24 22:55 64 03/21/24 22:50 100 03/21/24 22:50 65 03/21/24 22:45 100 03/21/24 22:45 67 03/21/24 22:40 100 03/21/24 22:40 77 03/21/24 22:35 100 03/21/24 22:35 77 03/21/24 22:30 100 03/21/24 22:30 62 03/21/24 22:25 100 03/21/24 22:25 74 03/21/24 22:20 100 03/21/24 22:20 65 03/21/24 22:15 100 03/21/24 22:15 67 03/21/24 22:10 100 03/21/24 22:10 77 03/21/24 22:10 112/69 03/21/24 22:05 100 03/21/24 22:05 64 03/21/24 22:00 100 03/21/24 22:00 67 03/21/24 21:55 100 03/21/24 21:55 70 03/21/24 21:50 100 03/21/24 21:50 70 03/21/24 21:45 100 03/21/24 21:45 73 03/21/24 21:40 100 03/21/24 21:40 69 03/21/24 21:35 100 03/21/24 21:35 71 03/21/24 21:30 100 03/21/24 21:30 70 03/21/24 21:25 100 03/21/24 21:25 66 03/21/24 21:20 100 03/21/24 21:20 68 03/21/24 21:10 100 03/21/24 21:10 68 03/21/24 21:07 65 03/21/24 21:07 110/61 03/21/24 21:05 100 03/21/24 21:05 67 03/21/24 21:00 100 03/21/24 21:00 65 03/21/24 20:55 100 03/21/24 20:55 68 03/21/24 20:50 100 03/21/24 20:50 58 L 03/21/24 20:45 100 03/21/24 20:45 58 L 03/21/24 20:40 100 03/21/24 20:40 63 03/21/24 20:35 100 03/21/24 20:35 60 03/21/24 20:30 100 03/21/24 20:30 62 03/21/24 20:25 100 03/21/24 20:25 67 03/21/24 20:20 100 03/21/24 20:20 67 03/21/24 20:15 100 03/21/24 20:15 65 03/21/24 20:10 100 03/21/24 20:10 66 03/21/24 20:06 70 03/21/24 20:06 116/68 03/21/24 20:05 100 03/21/24 20:05 66 03/21/24 20:00 100 03/21/24 20:00 68 03/21/24 19:55 100 03/21/24 19:55 64 03/21/24 19:30 36.5 C 03/21/24 18:55 66 03/21/24 18:55 131/85 03/21/24 16:55 71 115/74 03/21/24 16:46 71 03/21/24 16:46 115/74 03/21/24 16:42 18 03/21/24 16:42 36.6 C 18 03/21/24 16:42 18 03/21/24 16:42 36.6 C 18 Pain Intensity Bilateral Abdomen: Pain Intensity: 9 Notes Mental Status: alert / awake / arousable Patient Amnestic to Procedure: Yes Nausea / Vomiting: adequately controlled Pain: adequately controlled Airway Patency, RR, SpO2: stable & adequate BP & HR: stable & adequate Hydration State: stable & adequate Neuraxial Anesthesia: was administered and sensory block is resolving Anesthetic Complications: no major complications apparent
--- NOTE | 2024-03-22 11:10 | XRay Report ---
XR KUB/Abdomen 1 view CLINICAL HISTORY: stat csection no count TECHNIQUE: 1 view of the abdomen was obtained. Comparison: None available at the time of this dictation. FINDINGS: Surgical drain is seen. The osseous structures are grossly unremarkable. The bowel gas pattern is non obstructive. A moderate amount of stool is noted within the large bowel. IMPRESSION: A drain is seen. No radiodensities are seen to suggest retained foreign bodies. ACT 112: Negative or not required by law. Electronically signed by: Alex Garvin M.D. 03/22/2024 11:09 AM
[2024-03-22] MEDS ORDERED: MAGNESIUM HYDROXIDE SUSP 30 ML UDC PO PRN (11:11)
[2024-03-22] MEDS ORDERED: BENZOCAINE 20% SPRY 85 APPLN/85 GM CAN EXT PRN (11:11)
[2024-03-22] MEDS ORDERED: CALCIUM CARBONATE 500 MG CHEWABLE TAB PO PRN (11:11)
[2024-03-22] MEDS ORDERED: HYDROCORTISONE ACETATE 25 MG SUPP PR PRN (11:11)
[2024-03-22] MEDS ORDERED: SENNA 8.6 MG TAB PO PRN (11:11)
[2024-03-22] MEDS ORDERED: LACTATED RINGER'S 1,000 ML IV SCH (11:11)
[2024-03-22 11:27] LABS: Base Excess Cord Arterial Bld -3.2 mEq/L (-9-1.8); CO2 Cord Arterial Blood 52 mmHg (39.1-73.5); HCO3 Cord Arterial Blood 24 mmol/L (19.7-28.5); Oxygen Sat Cord Arterial Blood < 60.0 % (<60); PO2 Cord Arterial Blood 20 mmHg (4.1-31.7); pH Cord Arterial Blood 7.28 (7.1-7.38)
[2024-03-22] MEDS: AZITHROMYCIN 500 MG in DEXTROSE 5% 250 ML IV SCH (11:28)
[2024-03-22] MEDS: LACTATED RINGER'S 1,000 ML IV SCH (11:28)
[2024-03-22] MEDS: MoRPHine SULFATE PF 1 MG/ML 10 ML AMP/VIAL EPI ONE (11:29)
[2024-03-22 11:35] LABS: Base Excess Cord Venous Blood -2.8 mEq/L (-7.7-1.9); Cord Venous Blood HCO3 24 mmol/L (18.4-26.8); Cord Venous Blood PCO2 46 mmHg (30.4-57.2); Cord Venous Blood PO2 27 mmHg (14.1-43.3); Cord Venous Blood pH 7.32 (7.20-7.44); O2 Saturation Cord Venous Bld < 60.0 % (<68)
[2024-03-22] MEDS: DIPHTHER/TETAN/PERTUS Vaccine (Tdap, Adol/Adult) 0.5mL IM ONE (12:07)
[2024-03-22] MEDS: IBUPROFEN 600 MG TAB PO SCH (12:19)
[2024-03-22] MEDS: OXYTOCIN 30 UNITS/LR 1,003 ML IV SCH (12:20)
[2024-03-22] MEDS: ACETAMINOPHEN 1,000 MG/100 ML VIAL IV PRN (12:21)
[2024-03-22] MEDS: ceFAZolin 1000MG 1,000 MG/7.5 ML SYR IV SCH (12:53)
[2024-03-22] MEDS: ACETAMINOPHEN 325 MG TAB PO SCH (12:55)
[2024-03-22] MEDS: SIMETHICONE 80 MG CHEW PO SCH (14:03)
[2024-03-22] MEDS: SODIUM CHLORIDE 0.9% 1,000 ML IV SCH (14:04)
[2024-03-22] MEDS ORDERED: Nursing to Pharmacy Communication SCH (17:00)
[2024-03-22] MEDS: ONDANSETRON INJ 2 MG/ML 2 ML VIAL IV PRN (17:44)
[2024-03-22] MEDS: DOCUSATE SODIUM 100 MG CAP PO SCH (21:08)
[2024-03-23] MEDS ORDERED: ONDANSETRON INJ 2 MG/ML 2 ML VIAL IV PRN (03:33)
[2024-03-23] MEDS ORDERED: diphenhydrAMINE 50 MG/ML VIAL IV PRN (03:33)
[2024-03-23] MEDS ORDERED: diphenhydrAMINE Capsule 25 MG CAP PO PRN (03:33)
[2024-03-23] MEDS ORDERED: oxyCODONE HCL IR 5 MG TAB (IMMEDIATE RELEASE) PO PRN (03:33)
[2024-03-23] MEDS ORDERED: HYDROmorphone INJ 0.5 MG/0.5 ML SYR IV PRN (03:33)
[2024-03-23] MEDS ORDERED: PROMETHAZINE 12.5 MG/50.5 ML BAG IV PRN (03:33)
--- NOTE | 2024-03-23 06:07 | Obstetrical Progress Note ---
Date of Service March 23, 2024 Assessment & Plan (1) care and examination: Plan: POD#1: Stable, continue routine care Rh+, gbs -, ri Admission and Anticipated Discharge Date Admission Date: March 21, 2024 Supervising Physician Co-Signing Physician Notes Resident Physician Supervision Note: I interviewed and examined the patient. Discussed with Dr. Mishra and agree with findings and plan as documented in the note. Any exceptions or clarifications are listed here: POD1 doing well, incision CDI. Abdomen soft. Routine postop care, encouraged ambulation, hydration today. Documented By: DO Hi Terrell Rhonda is a 27 y/o female who is POD#1 following delivery at term. Mild (3/10) pain around incision, well managed on analgesics Is voiding Is tolerating meals Can ambulate on own. Is not passing gas and has not had BMs Having appropriate lochia Currently breast feeding. Review of Systems Constitutional: no fever, no chills and no sweats Respiratory: no dyspnea Cardiovascular: no chest pain, no palpitations and no calf pain Genitourinary: no dysuria Neurologic: no headache(s) Physical Exam Physical Exam: General: Alert, oriented. No acute distress. Cardiac: Regular rate and rhythm, no murmurs, rubs, or gallops. Respiratory: Clear to auscultation bilaterally, no wheezes/rales/rhonchi. No increased work of breathing. Symmetrical chest rise. No respiratory distress. Abdomen: Soft, nontender, nondistended. Bowel sounds present. Uterus: Uterine fundus firm, palpable 1 cm below the umbilicus. Dressing clean, dry, intact Lower extremities: No lower extremity edema or swelling. No deep calf pain. Results & Data Vital Signs (Past 12 Hours) Vital Signs Temp Pulse Resp BP Pulse Ox O2 Del Method 03/23/24 04:15 36.6 C 74 16 114/74 97 Room Air 03/23/24 03:33 18 97 03/23/24 02:56 18 97 03/23/24 01:58 16 97 03/23/24 01:03 16 99 03/23/24 00:00 16 98 03/22/24 23:15 36.7 C 82 18 113/73 98 Room Air 03/22/24 23:00 18 97 03/22/24 21:59 18 97 03/22/24 21:00 Room Air 03/22/24 21:00 36.8 C 73 16 111/69 97 Room Air 03/22/24 21:00 16 97 03/22/24 18:07 16 98 Resident Activity Tracking Resident Involvement: Resident Care Provided Care Provided: Adult Hospital Medicine
[2024-03-23 06:45] LABS: Basophils # (auto) 0.04 K/uL (0.00-0.20); Basophils % (auto) 0.3 %; Eosinophils # (auto) 0.06 K/uL (0.00-0.50); Eosinophils % (auto) 0.4 %; Hematocrit (blood only) 31.5 % (37.0-47.0); Hemoglobin 10.2 g/dl (12.0-16.0); Immature Granulocytes # (auto) 0.05 K/uL (0.01-0.20); Immature Granulocytes % (auto) 0.4 %; Lymphocytes # (auto) 1.52 K/uL (1.20-3.40); Lymphocytes % (auto) 10.7 %; Mean Corpuscular Hemoglobin 28.7 pg (25.0-34.0); Mean Corpuscular Hgb Conc 32.4 g/dL (32.0-36.0); Mean Corpuscular Volume 88.5 fL (80.0-100.0); Mean Platelet Volume 10.2 fL (9.4-12.4); Monocytes # (auto) 0.91 K/uL (0.11-0.59); Monocytes % (auto) 6.4 %; Neutrophils # (auto) 11.69 K/uL (1.40-6.50); Neutrophils % (auto) 81.8 %; Platelet Count 321 K/uL (130-400); RDW Coefficient of Variation 13.2 % (11.5-14.5); RDW Standard Deviation 42.7 fL (36.4-46.3); Red Blood Count 3.56 M/uL (4.20-5.40); White Blood Count 14.27 K/ul (4.8-10.8)
[2024-03-23] MEDS: PRENATAL VITAMIN 1 TAB PO SCH (08:31)
[2024-03-23] MEDS: FERROUS SULFATE 325 MG TAB PO SCH (08:31)
[2024-03-23 17:56] VITALS: O2SAT 98
[2024-03-23] MEDS: bisacodyL 5 MG TABEC PO SCH (20:16)
--- NOTE | 2024-03-24 05:42 | Obstetrical Progress Note ---
Date of Service March 24, 2024 Assessment & Plan (1) care and examination: Plan: POD#2: Stable, continue routine care, plan for d/c later today Rh+, gbs -, ri Admission and Anticipated Discharge Date Admission Date: March 21, 2024 Supervising Physician Co-Signing Physician Notes Resident Physician Supervision Note: I interviewed and examined the patient. Discussed with Dr. Mishra and agree with findings and plan as documented in the note. Any exceptions or clarifications are listed here: [ ] Documented By: Hemalatha Clark MD, FACOG Subjective Rhonda is a 28 y/o female who is POD#2 following delivery at term. Mild pain around incision, 3/10 w analgesics up to 5/10 when they start wearing off Is voiding, eating/drinking, ambulating, passing gas. Has not had a BM Having appropriate lochia Currently breast feeding. Review of Systems Constitutional: no fever, no chills and no sweats Respiratory: no dyspnea Cardiovascular: no chest pain, no palpitations and no calf pain Genitourinary: no dysuria Neurologic: no headache(s) Physical Exam Physical Exam: General: Alert, oriented. No acute distress. Cardiac: Regular rate and rhythm, no murmurs, rubs, or gallops. Respiratory: Clear to auscultation bilaterally, no wheezes/rales/rhonchi. No increased work of breathing. Symmetrical chest rise. No respiratory distress. Abdomen: Soft, nontender, nondistended. Bowel sounds present. Uterus: Uterine fundus firm, palpable 1 cm below the umbilicus. Incision clean, dry, healing well Lower extremities: No lower extremity edema or swelling. No deep calf pain. Results & Data Vital Signs (Past 12 Hours) Vital Signs Temp Pulse Resp BP Pulse Ox O2 Del Method 03/24/24 00:00 36.5 C 85 16 117/77 98 Room Air 03/23/24 20:10 36.7 C 81 16 109/68 98 Room Air Resident Activity Tracking Resident Involvement: Resident Care Provided Care Provided: Adult Hospital Medicine
[2024-03-24 06:50] LABS: Hematocrit (blood only) 28.1 % (37.0-47.0); Hemoglobin 9.1 g/dl (12.0-16.0)
[2024-03-24 09:19] VITALS: BP 120/82; PULSE 75; RESP 18; TEMP 98.2
[2024-03-24] MEDS ORDERED: ACETAMINOPHEN 325 MG TAB PO PRN (10:36)
[2024-03-24] MEDS ORDERED: IBUPROFEN 600 MG TAB PO PRN (10:36)
[2024-03-24] MEDS ORDERED: bisacodyL 10 MG SUPP PR PRN (10:36)
== END 2024-03-24 10:45 | disposition home or self-care (01) | DRG 788 ==
LOC: OPB 16:35 → 4S1 16:35 → 4E2 03-22 12:50